=== PATIENT | female | born 1950 | race Caucasian/White ===

== ENCOUNTER 2020-06-17 13:24 | Outpatient (CLI) | payer MEDICARE, SELFPAY ==
--- NOTE | ~2020-06-17 | DEXA_ITS ---
Bone Density Report Name: Trish Patel Age: 69 Sex: Female Ethnicity: White Date of : 1950 Indication: osteopenia; parental hip fracture; height loss; postmenopausal Referring Provider: Santi, Yoly Moncada Study: Bone densitometry was performed. Exam Date: June 17, 2020 Accession number: [id number] Bone Density: Region BMD T-score Z-score Classification AP Spine (L1, L2) 0.869 -1.0 1.1 Normal Femoral Neck (Left) 0.622 -2.0 -0.2 Osteopenia Total Hip (Left) 0.753 -1.6 0.0 Osteopenia Total Hip Bilateral Avg 0.792 -1.2 0.3 Osteopenia Femoral Neck (Right) 0.679 -1.5 0.3 Osteopenia Total Hip (Right) 0.829 -0.9 0.7 Normal World Health Organization criteria for BMD impression classify patients as: Normal (T-score at or above -1.0), Osteopenia (T-score between -1.0 and -2.5), or Osteoporosis (T-score at or below -2.5). Previous Exams: Region Exam Age BMD T-score BMD Change BMD Change Date g/cm2 vs Baseline vs Previous AP Spine(L1, L2) 06/17/2020 69 0.869 -1.0 -0.114(-11.6%) 0.077(9.8%)* 01/28/2016 65 0.791 -1.7 -0.192(-19.5%) -0.049(-5.9%)# 01/04/2012 61 0.841 -1.3 -0.142(-14.5%) -0.142(-14.5%) 10/30/2005 54 0.983 0.0 Total Hip(Left) 06/17/2020 69 0.753 -1.6 -0.096(-11.3%) -0.027(-3.4%) 01/28/2016 65 0.779 -1.3 -0.069(-8.2%)# -0.052(-6.3%)# 01/04/2012 61 0.832 -0.9 -0.017(-2.0%)# -0.017(-2.0%)# 10/30/2005 54 0.849 -0.8 Total Hip(Right) 06/17/2020 69 0.829 -0.9 -0.033(-3.8%)# 0.038(4.8%)* 01/28/2016 65 0.792 -1.2 -0.071(-8.2%)# -0.024(-3.0%)# 01/04/2012 61 0.816 -1.0 -0.047(-5.4%)# -0.047(-5.4%)# 10/30/2005 54 0.862 -0.7 *Denotes significance at 95% confidence level, LSC for AP Spine = 0.022 g/cm2, LSC for Total Hip = 0.027 g/cm2 Clinical Information Provided by Patient: Parent has had a hip fracture Has used the following medications: Vitamin D, Calcium Patient maximum height was 64.5 Menopause Age: 54 Drinks caffeinated beverages Onset of menses at age 11 Number of children 2 Impression: The patient has low bone mass, based on the Left Femoral Neck T-score. The patient has risk factors, including: parental hip fracture. No significant bone loss was observed. Discussion: BONE DENSITY IS LOW AT ONE OR MORE SKELETAL SITES. This patient's lowest T-score is low at one or more skeletal sites. It meets the World Health Organization's (WHO) criteria for ?low bone mass? (T-score between -1.0 and -2.5). The patient's 10-year risk of fracture as calculated by FRAX is less than the threshold where pharmacological therap
--- NOTE | ~2020-06-17 | MMUS_ITS ---
EXAMINATION: MM screen LT diag RT w sandy, US breast RT limited HISTORY: Six-month follow-up TECHNIQUE: Additional 3-D tomosynthesis images of were performed and synthetic 2-D images were genera espinoza. CAD analysis was submitted and interpreted. COMPARISON: 09/15/2019diagnostic right digital mammogram and limited right breast ultrasound BREAST PARENCHYMAL COMPOSITION: There are scattered areas of fibroglandular density. FINDINGS: Bilateral mammogram: No suspicious mass or architectural distortion, malignant calcification, skin thickening or retracti on. Limited right breast ultrasound: There is a 3.1 x 3.3 mm sonolucency at 9:00 4 cm from the nipple, without internal vascularity or pos terior shadowing, not significantly changed since 09/07/2019. No suspicious mass or shadowing is evident. IMPRESSION: 1. No mammographic evidence of malignancy 2. Routine mammographic screening is recommended BI-RADS Category 2: Benign finding(s). Reviewed, dictated and finalized at location A. IMPRESSION: 1. No mammographic evidence of malignancy 2. Routine mammographic screening is recommended BI-RADS Category 2: Benign finding(s).
== END 2020-06-17 13:25 | disposition home or self-care (01) ==
PROVIDERS: PCP Internal Medicine; Visit Provider Internal Medicine
DX: Z78.0 Asymptomatic menopausal state (principal); Z12.31 Encounter for screening mammogram for malignant neoplasm of breast; R92.8 Other abnormal and inconclusive findings on diagnostic imaging of breast; M85.852 Other specified disorders of bone density and structure, left thigh; M85.851 Other specified disorders of bone density and structure, right thigh
CPT/HCPCS: 76642; 77063; 77065; 77067; 77080

== ENCOUNTER 2021-06-21 09:32 | Outpatient (CLI) | payer MEDICARE, SELFPAY ==
--- NOTE | ~2021-06-21 | MM_ITS ---
EXAMINATION: MM screening [facility] BI w sandy HISTORY: Screening TECHNIQUE: Craniocaudal and mediolateral oblique 3-D tomosynthesis images were obtained and synthetic 2-D images were generated. CAD analysis was submitted and interpreted. COMPARISON: Comparison to multiple prior studies sequentially, with oldest reviewed study dated 01/29. BREAST PARENCHYMAL COMPOSITION: There are scattered areas of fibroglandular density. FINDINGS: There is no evidence of suspicious mass, calcification, or architectural distortion to sugg est malignancy in either breast. There has been no suspicious interval change. IMPRESSION: 1. No mammographic evidence of malignancy. 2. Recommend routine screening mammography in one year. BI-RADS Category 1: Negative Reviewed, dictated and finalized at location A.
== END 2021-06-21 09:33 | disposition home or self-care (01) ==
LOC: ANHIMG 09:41
PROVIDERS: PCP Internal Medicine; Visit Provider Internal Medicine
DX: Z12.31 Encounter for screening mammogram for malignant neoplasm of breast (principal)
CPT/HCPCS: 77063; 77067

== ENCOUNTER 2022-08-25 08:13 | Outpatient (CLI) | payer MEDICARE, SELFPAY ==
--- NOTE | ~2022-08-25 | MM_ITS ---
EXAMINATION: MM screening [facility] BI w sandy HISTORY: Screening mammogram TECHNIQUE: Craniocaudal and mediolateral oblique 3-D tomosynthesis images were obtained and synthetic 2-D images were generated. CAD analysis was submitted and interpreted. COMPARISON: 06/21/2021, 06/17/2020, 09/15/2019, 03/05/2019 BREAST PARENCHYMAL COMPOSITION: There are scattered areas of fibroglandular density. FINDINGS: No suspicious mass, calcification, or architectural distortion are identified in either sweta ast to suggest malignancy. There has been no suspicious interval change. IMPRESSION: 1. No mammographic evidence of malignancy. 2. Recommend routine screening mammography in one year. BI-RADS Category 1: Negative Reviewed, dictated and finalized at location A.
== END 2022-08-25 08:14 | disposition home or self-care (01) ==
LOC: ANHIMG 08:14
PROVIDERS: PCP Internal Medicine; Visit Provider Internal Medicine
DX: Z12.31 Encounter for screening mammogram for malignant neoplasm of breast (principal)
CPT/HCPCS: 77063; 77067

== ENCOUNTER 2023-10-23 13:44 | Outpatient (CLI) | payer MEDICARE, SELFPAY ==
--- NOTE | ~2023-10-23 | DEXA_ITS ---
Bone Density Report Name: ASIM PERRY Age: 72 Sex: Female Ethnicity: White Date of : 1950 Indication: osteopenia; parental hip fracture; height loss; postmenopausal Referring Provider: LAMONT, WENDI Moncada Study: Bone densitometry was performed. Exam Date: October 23, 2023 Accession number: [id number] Bone Density: Region BMD T-score Z-score Classification AP Spine(L1, L2, L3) 0.947 -0.6 1.7 Normal Femoral Neck (Left) 0.688 -1.5 0.6 Osteopenia Total Hip (Left) 0.766 -1.4 0.3 Osteopenia Femoral Neck (Right) 0.734 -1.0 1.0 Normal Total Hip (Right) 0.765 -1.5 0.3 Osteopenia Total Hip Mean 0.766 -1.5 0.3 Osteopenia World Health Organization criteria for BMD impression classify patients as: Normal (T-score at or above -1.0), Osteopenia (T-score between -1.0 and -2.5), or Osteoporosis (T-score at or below -2.5). 10-year Fracture Risk(1): Major Osteoporotic Fracture 17% Hip Fracture 8.2% Reported Risk Factors: [place] (), Neck BMD=0.688, BMI=28.3, parental fracture (1) FRAX(R) Version 3.08. Fracture probability calculated for an untreated patient. Fracture probability may be lower if the patient has received treatment. Previous Exams: Region Exam Age BMD T-score BMD Change BMD Change Date g/cm2 vs Baseline vs Previous AP Spine (L1-L3) 10/23/2023 72 0.947 -0.6 0.006 (0.6%)# 0.094 (11.1%)* 01/28/2016 65 0.853 -1.5 -0.088 (-9.4%) -0.088 (-9.4%) 01/04/2012 61 0.941 -0.7 Total Hip(Left) 10/23/2023 72 0.766 -1.4 -0.065 (-7.9%) 0.014 (1.8%) 06/17/2020 69 0.753 -1.6 -0.079 (-9.5%) -0.027 (-3.4%) 01/28/2016 65 0.779 -1.3 -0.052 (-6.3%) -0.052 (-6.3%) 01/04/2012 61 0.832 -0.9 Total Hip(Right) 10/23/2023 72 0.765 -1.5 -0.051 (-6.3%) -0.065 (-7.8%) 06/17/2020 69 0.829 -0.9 0.014 (1.7%)# 0.038 (4.8%)* 01/28/2016 65 0.792 -1.2 -0.024 (-3.0%) -0.024 (-3.0%) 01/04/2012 61 0.816 -1.0 *Denotes significance at 95% confidence level, LSC for AP Spine = 0.022 g/cm2, LSC for Total Hip = 0.027 g/cm2 # Denotes dissimilar scan types or analysis methods Clinical Information Provided by Patient: Parent has had a hip fracture Has used the following medications: Calcium Patient maximum height was 64 Menopause Age: 54 Drinks caffeinated beverages Onset of menses at age 11 Number of children 2 Impression: The patient has low bone mass, based on the Right Tot
--- NOTE | ~2023-10-23 | MM_ITS ---
EXAMINATION: MM screening [facility] BI w sandy HISTORY: Screening mammogram TECHNIQUE: Craniocaudal and mediolateral oblique 3-D tomosynthesis images were obtained and synthetic 2-D images were generated. CAD analysis was submitted and interpreted. COMPARISON: 08/25/2022, 06/21/2021, 06/17/2020, 09/07/2019, 03/21/2019, 03/05/2019 BREAST PARENCHYMAL COMPOSITION: There are scattered areas of fibroglandular density. FINDINGS: No suspicious mass, calcification, or architectural distortion are identified in either sweta ast to suggest malignancy. There has been no suspicious interval change. IMPRESSION: 1. No mammographic evidence of malignancy. 2. Recommend routine screening mammography in one year. BI-RADS Category 1: Negative Reviewed, dictated and finalized at location A. UCTION MACHINIST
== END 2023-10-23 13:45 | disposition home or self-care (01) ==
PROVIDERS: PCP Internal Medicine; Visit Provider Internal Medicine
DX: Z12.31 Encounter for screening mammogram for malignant neoplasm of breast (principal); Z78.0 Asymptomatic menopausal state; Z13.820 Encounter for screening for osteoporosis; M85.852 Other specified disorders of bone density and structure, left thigh; M85.851 Other specified disorders of bone density and structure, right thigh
CPT/HCPCS: 77063; 77067; 77080